=== PATIENT | male | born 1955 | race Caucasian/White ===

== ENCOUNTER → 2016-11-23 | Outpatient (CLI) | payer OTHER | LOC: FIMAGING 12:39 | PROVIDERS: ATTEND Internal Medicine Gastroenterology | DX: R10.11 Right upper quadrant pain (principal) ==

== ENCOUNTER 2017-02-18 05:44 | Observation (INO) | payer OTHER ==
--- NOTE | 2017-02-16 10:06 | GHP ---
[f rep st] PREOP HISTORY AND PHYSICAL DATE OF ADMISSION: 02/18/2017 CHIEF COMPLAINT: Chronic right upper quadrant abdominal pain with hernia. HISTORY OF PRESENT ILLNESS: The patient is a 61-year-old man, who presented to the clinic with chron ic abdominal pain. The pain is located in the central and right upper quadrant. He had episodes of worsening pain associated with nausea, diarrhea and occasional vomiting. He reported decreased appet ite and has lost about 50 pounds over the last year. The pain he reports is mild and dull with sever e episodes that double him over. He has a known hernia of his umbilicus. He has had an extensive GI workup including capsule endoscopy which was normal. He had an MRCP on November 08 which showed no duct al dilatation or choledocholithiasis. His small bowel series which showed focal hold of contrast in the small bowel loop in the left lower quadrant without significant obstruction, low-grade inflammati on or transient contraction suspected. He had a gastric emptying study in September 2016 which was normal . He had an endoscopy in August 2016 which was normal, and colonoscopy which showed decreased sphincter tone, non thrombosed external hemorrhoids, sigmoid diverticulosis and 1 hyperplastic polyp. Followi ng his visit with us in the office, he had a CT abdomen performed that showed a small fat containing periumbilical hernia measuring 2.6 cm. There is an additional hernia more superior and right ramona me priscilla fat containing ventral abdominal wall hernia, the hernia neck measuring 7 mm. At this time, he would like to proceed with ventral hernia repairs with mesh. PAST MEDICAL HISTORY: Asthma, hypertension, hyperlipidemia. PAST SURGICAL HISTORY: Previous hernia repair, lap choly, spinal surgery. MEDICATIONS: Unchanged. ALLERGIES: No known drug allergies. FAMILY HISTORY: Father with coronary artery disease. SOCIAL HISTORY: He denies current tobacco, alcohol or recreational drug use. He is a former smoker. He is . He is retired. REVIEW OF SYSTEMS: A 10-point review of systems negative aside from HPI. PHYSICAL EXAMINATION: GENERAL: Well-developed, well-nourished man, in no acute distress. HEENT: N ormocephalic, atraumatic. No hearing deficits. Pupils equal and round. No scleral icterus. Mucous membranes moist. NECK: Trachea midline. RESPIRATORY: Clear to auscultation bilaterally. No incr eased work of breathing. CARDIOVASCULAR: Regular rate and rhythm. No peripheral edema. ABDOMEN: Tenderness to palpation of the right upper quadrant and periumbilical with palpable hernias. No rebo und or guarding. No palpable masses. Bowel sounds present. SKIN: Warm and dry. PSYCH: Mood and affect normal. NEURO: Grossly intact. IMPRESSION AND PLAN: A 61-year-old man with 2 ventral hernias. He is scheduled for an exploratory l aparoscopy with open ventral hernia repairs with mesh. We discussed risks of surgery including, but not limited to, heart attack, stroke, blood clots, . We discussed risk of infection, bleeding, damage to surrounding structures, need for additional procedures or recurrence. He understands the r isks and would like to proceed. The patient was additionally seen by Dr. Avril Ohara. /[id number]/MODL
[2017-02-18] MEDS ORDERED: ceFAZolin 2 GM/SWFI 2 GM/20 ML SYR IVP ONE (06:47)
[2017-02-18] MEDS ORDERED: ceFAZolin 2 GM/SWFI 20 ML SYR IVP ONE (06:56)
[2017-02-18] MEDS ORDERED: BUPIVACAINE 0.5% 30 ML SDV ONE (07:01)
--- NOTE | 2017-02-18 07:01 | PDHPUP ---
History & Physical Update H&P update statement: This history and physical update is based on an assessment of the patient which was completed after admission or registration (within 24 hours), but prior to the surgery/procedure. H&P update: H&P reviewed & patient examined, no change in patient's condition since H&P completed
--- NOTE | 2017-02-18 07:15 | PDANEPAE ---
ANE History of Present Illness 61 year old male w/ PMHx of HTN, asthma, TIA (states he still has left mouth corner down turn) with nausea and vomiting presents for ventral hernia repair. ANE Past Medical History - Cardiovascular History Hx Hypertension: Yes Hx Arrhythmias: Yes Hx Chest Pain: No Hx Coronary Artery / Peripheral Vascular Disease: No Hx CHF / Valvular Disease: No Hx Palpitations: Yes Cardiovascular History Comment: HYPERLIPIDEMIA. IRREGULAR RHYTHM AT TIMES PER PT - Pulmonary History Hx COPD: No Hx Asthma/Reactive Airway Disease: Yes Hx Recent Upper Respiratory Infection: No Hx Oxygen in Use at Home: No Hx Sleep Apnea: No Sleep Apnea Screening Result - Last Documented: Negative Pulmonary History Comment: INHALER. 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 - Neurologic History Hx Cerebrovascular Accident: No Hx Seizures: No Hx Dementia: No Neurologic History Comment: TIAs 20 YRS AGO - Endocrine History Hx Diabetes: No Hypothyroid: No Hyperthyroid: No Obesity: no - Renal History Hx Renal Disorders: No - Liver History Hx Hepatic Disorders: No - Neurological & Psychiatric Hx Hx Neurological and Psychiatric Disorders: No - Cancer History Hx Cancer: No - Congenital Disorder History Hx Congenital Disorders: No - GI History Hx Gastrointestinal Disorders: Yes Gastrointestinal History Comment: ABD PAIN,NAUSEA,VOMITING, DIARRHEA & LACK OF APPETITE WITH WT LOSS - Other Health History Other Health History: EASY BRUISING - Chronic Pain History Chronic Pain: Yes (R ABD PAIN) - Surgical History Prior Surgeries: HERNIA REPAIR. CHOLECYSTECTOMY. SPINAL FUSION LUMBAR ANE Review of Systems Review of systems is: negative Review of Systems: - Exercise capacity Exercise capacity: <4 METS METS (RN): 3 METS ANE Patient History - Allergies Allergies/Adverse Reactions: No Known Allergies Allergy (Unverified 02/16/17 09:36) - Home Medications Home medications: home medication list seen and reviewed Home Medications: Aspirin 02/16/17 [Last Taken Unknown] Dicyclomine 02/16/17 [Last Taken Unknown] Diltiazem 02/16/17 [Last Taken Unknown] Esomeprazole Sodium 02/16/17 [Last Taken Unknown] Herbals/Supplements -Info Only 02/16/17 [Last Taken Unknown] Losartan Potassium 02/16/17 [Last Taken Unknown] Montelukast Sodium 02/16/17 [Last Taken Unknown] Pravastatin Sodium 02/16/17 [Last Taken Unknown] Promethazine HCl 02/16/17 [Last Taken Unknown] Triamterene/Hydrochlorothiazid 02/16/17 [Last Taken Unknown] Zofran 02/16/17 [Last Taken Unknown] traZODone 02/16/17 [Last Taken Unknown] - NPO status NPO Status: no food or drink >8 hours NPO Since - Liquids (Date): 02/17/17 NPO Since - Liquids (Time): 20:00 NPO Since - Solids (Date): 02/17/17 NPO Since - Solids (Time): 18:00 - Anes Hx Anes Hx: no prior problems - Smoking Hx Smoking Status: Never smoked Marijuana use: No - Alcohol Use Alcohol Use: None - Family Anes Hx Family Anes Hx: neg - N/A Family Hx Anesthesia Complications: NEG ANE Labs/Vital Signs - Vital Signs Vital Signs: reviewed preoperatively; see RN documention for details Blood Pressure: 112/81 Heart Rate: 76 Respiratory Rate: 16 O2 Sat (%): 93 Height: 182.88 cm Weight: 92.533 kg ANE Physical Exam - Airway Neck exam: FROM Mallampati Score: Class 2 Mouth exam: poor dentition, dentures, lane - Pulmonary Pulmonary: no respiratory distress - Cardiovascular Cardiovascular: regular rate and rhythym - ASA Status ASA Status: III ANE Anesthesia Plan Anesthesia Plan: general endotracheal anesthesia Total IV Anesthesia: No
[2017-02-18] MEDS ORDERED: fentaNYL 100 MCG/2 ML INJ ONE ×3 (07:18→09:18)
[2017-02-18] MEDS ORDERED: PROPOFOL 200 MG/20 ML VIAL ONE (07:19)
[2017-02-18] MEDS ORDERED: HYDROCODONE/APAP 5/325 TAB PO PRN (07:49)
[2017-02-18] MEDS ORDERED: NALOXONE HCL 0.4 MG/ML INJ IVP PRN ×2 (07:49→10:51)
[2017-02-18] MEDS ORDERED: LR 500 ML IV PRN (07:49)
[2017-02-18] MEDS ORDERED: ROCURONIUM 50 MG/5 ML VIAL ONE ×2 (07:56)
[2017-02-18] MEDS ORDERED: LIDOCAINE 2% 5 ML SDV ONE (07:56)
[2017-02-18] MEDS ORDERED: ONDANSETRON 4 MG/2 ML VIAL ONE ×3 (08:09→10:06)
[2017-02-18] MEDS ORDERED: DEXAMETHASONE 4 MG/ML VIAL ONE (08:09)
[2017-02-18] MEDS ORDERED: SUGAMMADEX SODIUM 200 MG/2 ML VIAL IVP ONE (08:10)
[2017-02-18] MEDS ORDERED: ACETAMINOPHEN 325 MG TAB PO PRN (08:34)
[2017-02-18] MEDS ORDERED: diphenhydrAMINE 25 MG CAP PO PRN (08:34)
[2017-02-18] MEDS ORDERED: ONDANSETRON 4 MG/2 ML VIAL IVP PRN (08:34)
[2017-02-18] MEDS ORDERED: ONDANSETRON DISINTEGRATING 4 MG TAB PO PRN (08:34)
[2017-02-18] MEDS ORDERED: HYDROmorphONE/DILAUDID 1 MG/ML INJ IVP PRN (08:35)
--- NOTE | 2017-02-18 08:42 | POSTOPPROG ---
Post Op Note Date of Operation: 02/18/17 Surgeon: Avril Oahra Pet Stylist: isaac Anesthesiologist: jesus Anesthesia: GET(General Endotracheal) Pre-op Diagnosis: ventral hernia x2, RUQ pain Post-op Diagnosis: incarcerated ventral hernias Indication: 61y M with symptomatic ventral hernias, RUQ pain Procedure: laparoscopic ventral hernia repair with mesh Findings: omentum incarcerated in ventral hernias, no other obvious source of pain Inf/Abcess present in the surg proc area at time of surgery?: No Depth: Deep Incisional (Fascial) EBL: Minimal Specimen(s): none
[2017-02-18] MEDS ORDERED: NS 1,000 ML IV SCH (08:45)
[2017-02-18] MEDS ORDERED: KETOROLAC 30 MG/1 ML SDV ONE (08:53)
[2017-02-18] MEDS: fentaNYL 100 MCG/2 ML INJ IVP PRN ×2 (09:19→09:26)
[2017-02-18] MEDS: ONDANSETRON 4 MG/2 ML VIAL IVP PRN ×2 (09:26→10:07)
[2017-02-18] MEDS ORDERED: HYDROmorphONE/DILAUDID 1 MG/ML INJ ONE (09:42)
[2017-02-18] MEDS: HYDROmorphONE/DILAUDID 1 MG/ML INJ IVP PRN ×4 (09:43→10:25)
[2017-02-18] MEDS ORDERED: HYDROmorphONE/DILAUDID 6 MG/30 ML PCA IV PRN (10:51)
[2017-02-18] MEDS: HYDROCODONE/APAP 5/325 TAB PO PRN ×2 (11:06→15:10)
--- NOTE | 2017-02-18 12:01 | POSTANESTH ---
Post Anesthetic Evaluation Cardiovascular Status: Normal, Stable, Similar to Pre-Op Cond Respiratory Status: Normal, Stable, Similar to Pre-op Cond. Level of Consciousness/Mental Status: Alert and Oriented Pain Control: Adequate, Prn Tx Ordered Nausea/Vomiting Control: Adequate, Prn Tx Ordered Complications Possibly Related to Anesthesia: None Noted
--- NOTE | 2017-02-18 12:17 | GOP ---
[f rep st] OPERATIVE REPORT DATE OF OPERATION: 02/18/2017 SURGEON: Avril Ohara MD GREENS PLANTER: ALBERTA Lopez ANESTHESIA: General. ANESTHESIOLOGIST: Jack Ge MD PREOPERATIVE DIAGNOSIS: Right upper quadrant pain and incarcerated ventral hernia x2. POSTOPERATIVE DIAGNOSIS: Right upper quadrant pain and incarcerated ventral hernia x2. PROCEDURE PERFORMED: Laparoscopic lysis of adhesions and laparoscopic ventral hernia repair with mesh. FINDINGS: Two small approximately 1 cm hernia defects in the midline; no obvious defects in the right upper quadrant. The colon appeared normal. There were no abnormalities at the previous site of his gallbladder surgery. SPECIMENS: None. ESTIMATED BLOOD LOSS: 10 cc. INDICATIONS: The patient is a 61-year-old man who has had abdominal pain, and significant weight loss. CT imaging was significant for 2 small incarcerated ventral hernias but no specific findings in the right upper quadrant. DESCRIPTION OF PROCEDURE: The patient was brought into the operating room, placed supine on the table, and general anesthesia was administered. His abdomen was prepped and draped in the usual sterile fashion. I infiltrated all sites with 0.5% Marcaine prior to making incisions. I used a total of 30 cc of 0.5% Marcaine throughout the case. I made an incision in his left lower quadrant. I elevated the skin and soft tissue. I inserted the Veress needle. It passed the hanging drop test. His abdomen insufflated easily to a pressure of 15 mmHg. I explored his abdomen. He had incarcerated omentum along the midline. I explored the right upper quadrant where I had marked preoperatively and did not notice any abnormalities in this area. I placed an additional 5 mm trocar in the left upper quadrant. I then carefully reduced the omentum with the Harmonic. It took time to reduce the omentum from the larger of the 2 defects. Once this was totally reduced, I then explored his right upper quadrant further. The colon appeared normal. I did not see any abnormalities that could explain his pain. His skin appeared very thin, and I was concerned I would have wound healing problems. I then elected to perform a laparoscopic hernia repair with mesh. I inserted a 10 mm trocar in between the 1st and 2nd trocars. I selected a piece of Symbotex mesh 10 x 15 cm, which is a dual layer mesh. I placed 4 tacking sutures in the 4 quadrants. There was at least 3 cm overlap of the hernias in each direction. I used a Nghia-Jett device, and I tacked the 4 corners trans-fascially. I then used an AbsorbaTack to place 2 concentric circles in the mesh. During this time, the pressure was reduced to 10. The sutures were tied down. The mesh was in adequate position. I did watch it as I continued to desufflate the abdomen. I removed the trocars. I closed the fascia at the 10 mm trocar site with 0 Vicryl. I closed all skin with 4-0 Monocryl. Dermabond applied. He was awakened in the operating room, extubated, and transferred to PACU in stable condition. /[id number]/MODL MTDD
[2017-02-18 15:43] VITALS: BP 137/75; PULSE 67; RESP 18; TEMP 98.2; O2SAT 95
--- NOTE | 2017-02-18 16:41 | SOAPPROG ---
KLAUD[facility] Progress Note Assessment/Plan: Assessment: POD # 0 s/p lap ventral hernia repair for incarcerated ventral hernia doing better than expected and would like to go home F/U 2 weeks Plan: 02/18/17 16:39 Objective: Vital Signs Temp Pulse Resp BP Pulse Ox 36.8 C 67 18 137/75 H 95 02/18/17 15:39 02/18/17 15:39 02/18/17 15:39 02/18/17 15:39 02/18/17 15:39 02/17/17 02/18/17 02/19/17 05:59 05:59 05:59 Intake Total 1575 Output Total 10 Balance 1565 ICD10 Worksheet Patient Problems: Problems Problem Status Onset Incarcerated ventral hernia Acute - ICD10 Problem Qualifiers (1) Incarcerated ventral hernia
[2017-02-19] MEDS ORDERED: ENOXAPARIN 40 MG/0.4 ML SYR SC SCH (09:00)
--- NOTE | 2017-02-19 11:13 | ASDISCHSUM ---
Discharge Information Plan Status: Medically Cleared to Leave: Discharge Date:02/18/2017 05:22 PM D/C Disposition: ADT D/C Disposition:Home, Routine, Self-Care Projected Discharge Date:02/18/2017 05:22 PM Transportation at D/C: Discharge Delay Reason: Follow-Up Date:02/18/2017 05:22 PM Discharge Slot: Final Diagnosis: Placement Information Patient Contact Information Contact Name:DERIK Relationship: Address: Work Phone: City: [facility] Phone: State/[employer] Code: Email: Financial Information Financial Class:HMO and PPO Plans Primary Plan Desc:JADE PPO POS HMO SIG ADM Primary Plan Number:[id number] Secondary Plan Desc: Secondary Plan Number: Assessment Information Intervention Information
== END 2017-02-18 17:22 | disposition home or self-care (01) ==
LOC: F3E 05:44
PROVIDERS: ADMIT Surgery; ATTEND Surgery
PROC: 0WUF4JZ Supplement Abdominal Wall with Synthetic Substitute, Percutaneous Endoscopic Approach (ICD-10-PCS; principal; 2017-02-18 07:30)
DX: K43.6 Other and unspecified ventral hernia with obstruction, without gangrene (principal); I10 Essential (primary) hypertension; E78.5 Hyperlipidemia, unspecified; J45.909 Unspecified asthma, uncomplicated
CPT/HCPCS: 49653; G0378; C1781; J0690; J1100; J1170; J1885; J2405; J2704; J3010

== ENCOUNTER 2018-09-29 09:43 | Inpatient (IN) | payer OTHER | END 2018-10-12 16:02 | disposition home or self-care (01) | LOC: F3E 09:43 ==